=== PATIENT | male | born 1935 | race Caucasian/White ===

== ENCOUNTER 2017-01-25 02:02 | Emergency (ER) | payer MEDICARE ==
[~2017-01-25] VITALS: Ht 177.8 cm; Wt 85.0 kg
[~2017-01-25 02:02] MED LIST: AMAN100T; CARB1TAB2 PO; CARB1TAB25 PO; CEFD300C37 PO; ENTA200T22 PO; FINA5TAB4 PO; PRAM1TAB5 PO; PROP20TA PO; TAMS-11 PO; TRIH2TAB3 PO
[2017-01-25 02:05] VITALS: BP 146/86
[2017-01-25 03:05] LABS: PATH.CAST-FLAG NOT PRESENT; SPERM-FLAG NOT PRESENT; SRC-FLAG NOT PRESENT; XTAL-FLAG NOT PRESENT; YLC-FLAG NOT PRESENT
[2017-01-25] MEDS ORDERED: POLY17PO5 PO (03:20)
== END 2017-01-25 03:32 | disposition home or self-care (01) ==
LOC: ED 03:26
DX: T83.098A Other mechanical complication of other urinary catheter, initial encounter (principal); N40.1 Benign prostatic hyperplasia with lower urinary tract symptoms; R33.8 Other retention of urine; N39.0 Urinary tract infection, site not specified; Z90.49 Acquired absence of other specified parts of digestive tract
CPT/HCPCS: 81001; 87077; 87086; 87186; 99284

== ENCOUNTER 2017-01-29 06:24 | Emergency (ER) | payer MEDICARE ==
[~2017-01-29] VITALS: Ht 177.8 cm; Wt 78.0 kg
[~2017-01-29 06:24] MED LIST changes: +POLY17PO5 PO
[2017-01-29] MEDS ORDERED: SODIUM CHLORIDE 0.9% 1,000 ML IV ONE (06:25)
[2017-01-29] MEDS ORDERED: SODIUM CHLORIDE FLUSH 10ML SYR IVF ONE (06:30)
[2017-01-29 07:10] LABS: ASPARTATE AMINO TRANSFERASE 13 U/L (15-37); BLOOD UREA NITROGEN 18 mg/dL (7-18)
[2017-01-29 07:26] VITALS: BP 134/77
== END 2017-01-29 08:57 | disposition left against medical advice (07) ==
LOC: ED 06:53
DX: R33.8 Other retention of urine (principal); I48.91 Unspecified atrial fibrillation; N40.1 Benign prostatic hyperplasia with lower urinary tract symptoms; Z88.5 Allergy status to narcotic agent; Z88.1 Allergy status to other antibiotic agents
CPT/HCPCS: 36415; 80053; 81001; 83605; 85025; 85610; 85730; 87086; 93005; 99285

== ENCOUNTER 2017-02-22 03:45 | Emergency (ER) | payer MEDICARE ==
[~2017-02-22] VITALS: Ht 177.8 cm; Wt 79.7 kg
[2017-02-22 07:44] VITALS: BP 109/49
== END 2017-02-22 08:00 | disposition home or self-care (01) ==
LOC: ED 04:56
DX: R31.0 Gross hematuria (principal); N40.1 Benign prostatic hyperplasia with lower urinary tract symptoms; R33.8 Other retention of urine
CPT/HCPCS: 51702

== ENCOUNTER 2017-02-22 20:27 | Inpatient (IN) | payer MEDICARE ==
[~2017-02-22] VITALS: Ht 177.8 cm; Wt 108.1 kg
[2017-02-22 22:12] LABS: BLOOD UREA NITROGEN 29 mg/dL (7-18)
[2017-02-23] MEDS ORDERED: ONDANSETRON 2MG/ML, 2ML IVPush PRN (01:30)
[2017-02-23] MEDS ORDERED: ACETAMINOPHEN 325 MG TABLET PO PRN (01:30)
[2017-02-23] MEDS ORDERED: CARBIDOPA/LEVODOPA 25 MG/250 MG TABLET PO SCH (01:30)
[2017-02-23 02:29] VITALS: BP 142/79
[2017-02-23 02:38] VITALS: BP 142/79
[2017-02-23] MEDS: SODIUM CHLORIDE 0.9% 1,000 ML IV SCH ×3 (03:58→21:03)
[2017-02-23] MEDS: ENTACAPONE 200 MG TABLET PO SCH ×4 (05:53→19:36)
[2017-02-23] MEDS: CARBIDOPA/LEVODOPA 25 MG/100 MG TABLET PO SCH ×2 (05:54→11:57)
[2017-02-23] MEDS: CARBIDOPA/LEVODOPA 25 MG/250 MG TABLET PO SCH ×6 (05:54→21:03)
[2017-02-23] MEDS: PRAMIPEXOLE 0.5MG TABLET PO SCH ×3 (05:54→14:45)
[2017-02-23] MEDS ORDERED: ENTACAPONE 200 MG TABLET PO SCH (06:00)
[2017-02-23 07:30] VITALS: BP 128/58
[2017-02-23] MEDS ORDERED: TAMSULOSIN 0.4 MG CAP.ER.24H PO SCH (09:00)
[2017-02-23] MEDS ORDERED: CARBIDOPA/LEVODOPA 25 MG/100 MG TABLET PO SCH (09:00)
[2017-02-23] MEDS ORDERED: PRAMIPEXOLE 0.5MG TABLET PO SCH (09:00)
[2017-02-23] MEDS ORDERED: FINASTERIDE 5 MG TABLET PO SCH (09:00)
[2017-02-23] MEDS: FAMOTIDINE 20 MG/2 ML IVPush SCH ×2 (09:06→21:02)
[2017-02-23 13:59] VITALS: BP 111/70
[2017-02-23] MEDS: FINASTERIDE 5 MG TABLET PO SCH (17:52)
[2017-02-23] MEDS: TAMSULOSIN 0.4 MG CAP.ER.24H PO SCH (17:53)
[2017-02-23 20:27] VITALS: BP 145/85
[2017-02-24 01:07] VITALS: BP 131/82
[2017-02-24] MEDS ORDERED: HALOPERIDOL 5 MG/ML IM ONE (02:30)
[2017-02-24] MEDS: SODIUM CHLORIDE 0.9% 1,000 ML IV SCH ×2 (04:41→17:28)
[2017-02-24 06:39] LABS: BLOOD UREA NITROGEN 14 mg/dL (7-18)
[2017-02-24] MEDS: CARBIDOPA/LEVODOPA 25 MG/100 MG TABLET PO SCH ×2 (07:30→12:00)
[2017-02-24] MEDS: FAMOTIDINE 20 MG/2 ML IVPush SCH ×2 (09:00→19:47)
[2017-02-24] MEDS: CARBIDOPA/LEVODOPA 25 MG/250 MG TABLET PO SCH ×3 (10:00→20:00)
[2017-02-24] MEDS: ENTACAPONE 200 MG TABLET PO SCH ×3 (10:00→19:47)
[2017-02-24] MEDS: PRAMIPEXOLE 0.5MG TABLET PO SCH ×2 (10:00→14:10)
[2017-02-24] MEDS: FINASTERIDE 5 MG TABLET PO SCH (16:40)
[2017-02-24] MEDS: TAMSULOSIN 0.4 MG CAP.ER.24H PO SCH (16:40)
[2017-02-25] MEDS: SODIUM CHLORIDE 0.9% 1,000 ML IV SCH (01:28)
[2017-02-25 03:01] VITALS: BP 128/71
[2017-02-25] MEDS: PRAMIPEXOLE 0.5MG TABLET PO SCH ×3 (05:45→15:15)
[2017-02-25] MEDS: ENTACAPONE 200 MG TABLET PO SCH ×3 (05:45→15:15)
[2017-02-25] MEDS: CARBIDOPA/LEVODOPA 25 MG/250 MG TABLET PO SCH ×3 (05:45→15:15)
[2017-02-25 07:08] VITALS: BP 135/75
[2017-02-25] MEDS: CARBIDOPA/LEVODOPA 25 MG/100 MG TABLET PO SCH ×2 (07:30→12:00)
[2017-02-25] MEDS: FAMOTIDINE 20 MG/2 ML IVPush SCH (09:00)
[2017-02-25 13:46] VITALS: BP 114/51
[2017-02-25] MEDS: TAMSULOSIN 0.4 MG CAP.ER.24H PO SCH (18:28)
[2017-02-25] MEDS: FINASTERIDE 5 MG TABLET PO SCH (18:29)
[2017-03-19] MEDS ORDERED: TAMS0.4C2 PO (13:39)
[2017-03-19] MEDS ORDERED: FINA5TAB4 PO (13:39)
== END 2017-02-25 19:46 | disposition home health service (06) | DRG 725 ==
LOC: ED 20:48 → EDIP 02-23 00:33 → 4NOR 02-23 01:52
PROVIDERS: ADMIT Internal Medicine; ATTEND Internal Medicine
DX: N40.1 Benign prostatic hyperplasia with lower urinary tract symptoms (principal); G92 Toxic encephalopathy; R31.0 Gross hematuria; E86.0 Dehydration; R33.8 Other retention of urine; I48.91 Unspecified atrial fibrillation; G20 Parkinson's disease; Z90.89 Acquired absence of other organs; Z82.3 Family history of stroke; Z82.49 Family history of ischemic heart disease and other diseases of the circulatory system; Z80.9 Family history of malignant neoplasm, unspecified; Z88.8 Allergy status to other drugs, medicaments and biological substances; Z90.49 Acquired absence of other specified parts of digestive tract
CPT/HCPCS: 36415; 70450; 80048; 81001; 82040; 85014; 85018; 85025; 87077; 87086; 87186; J7030; S0028

== ENCOUNTER → 2017-03-12 | Outpatient (CLI) | payer MEDICARE ==
[~2017-03-12] MED LIST changes: +OMNIPAQUE 350 MG/ML, 150 ML BOTTLE ONE
== END | disposition home or self-care (01) ==
LOC: CFH 09:50
PROVIDERS: ATTEND Physician Assistant
DX: N32.9 Bladder disorder, unspecified (principal); N40.0 Benign prostatic hyperplasia without lower urinary tract symptoms; M47.896 Other spondylosis, lumbar region; K76.89 Other specified diseases of liver
CPT/HCPCS: 74178; Q9967

== ENCOUNTER 2017-03-26 10:42 | Inpatient (IN) | payer MEDICARE ==
[~2017-03-26] VITALS: Ht 177.8 cm; Wt 78.9 kg
[~2017-03-26 10:42] MED LIST changes: -OMNIPAQUE 350 MG/ML, 150 ML BOTTLE ONE; +TAMS0.4C2 PO
[2017-03-26] MEDS ORDERED: LACTATED RINGERS 1,000 ML IV SCH (11:30)
[2017-03-26] MEDS ORDERED: NA P133E2 PR (11:33)
[2017-03-26] MEDS ORDERED: PROPOFOL 10 MG/ML, 20ML ONE (14:13)
[2017-03-26] MEDS ORDERED: PROPOFOL 10 MG/ML, 50ML ONE (14:13)
[2017-03-26] MEDS ORDERED: MIDAZOLAM 1 MG/ML, 2ML ONE (14:14)
[2017-03-26] MEDS ORDERED: FENTANYL PF 100 MCG/2ML ONE (14:22)
[2017-03-26] MEDS ORDERED: CEFTRIAXONE 1,000 MG ONE ×2 (14:29→15:10)
[2017-03-26] MEDS: CEFTRIAXONE PMX 1GM/50ML 50 ML IV SCH (14:55)
[2017-03-26] MEDS ORDERED: MIDAZOLAM 1 MG/ML, 2ML IV PRN (15:00)
[2017-03-26] MEDS ORDERED: FENTANYL PF 100 MCG/2ML IV PRN (15:00)
[2017-03-26] MEDS ORDERED: HYDROmorphone 1 MG/ML, 1ML IV PRN (15:00)
[2017-03-26] MEDS ORDERED: FUROSEMIDE 20 MG/2 ML ONE (15:12)
[2017-03-26] MEDS ORDERED: TEMAZEPAM 15 MG CAPSULE PO PRN (16:00)
[2017-03-26] MEDS ORDERED: ONDANSETRON 2MG/ML, 2ML IV PRN (16:00)
[2017-03-26] MEDS ORDERED: HYDROcodone/APAP 5/325 TABLET PO PRN (16:00)
[2017-03-26] MEDS ORDERED: OPIUM/BELLADONNA SUPP.RECT 16.2-30 MG PR PRN (16:00)
[2017-03-26] MEDS ORDERED: MORPHINE SULFATE 4 MG/ML, 1ML IV PRN (16:00)
[2017-03-26 17:11] LABS: BLOOD UREA NITROGEN 23 mg/dL (7-18)
[2017-03-26 17:55] VITALS: BP 131/72
[2017-03-26] MEDS: D5%-LACTATED RINGERS 1,000 ML IV SCH (18:15)
[2017-03-26 20:00] VITALS: BP 135/67
[2017-03-26] MEDS: ENTACAPONE 200 MG TABLET PO SCH (21:43)
[2017-03-26] MEDS: CARBIDOPA/LEVODOPA 25 MG/250 MG TABLET PO SCH (21:44)
[2017-03-26 23:56] VITALS: BP 100/53
[2017-03-27 02:00] VITALS: BP 133/62
[2017-03-27] MEDS: ENTACAPONE 200 MG TABLET PO SCH ×4 (05:59→20:02)
[2017-03-27] MEDS: CARBIDOPA/LEVODOPA 25 MG/250 MG TABLET PO SCH ×4 (05:59→20:02)
[2017-03-27] MEDS: PRAMIPEXOLE 0.5MG TABLET PO SCH ×4 (05:59→20:10)
[2017-03-27] MEDS ORDERED: ENTACAPONE 200 MG TABLET PO SCH (06:00)
[2017-03-27 06:28] LABS: ASPARTATE AMINO TRANSFERASE 14 U/L (15-37); BLOOD UREA NITROGEN 24 mg/dL (7-18)
[2017-03-27 06:33] LABS: IS PT STATUS REG ER OR PRE ER? NO
[2017-03-27 07:22] VITALS: BP 108/52
[2017-03-27] MEDS: D5%-LACTATED RINGERS 1,000 ML IV SCH (07:35)
[2017-03-27] MEDS: POLYETHYLENE GLYCOL 17 GM PACKET PO SCH (09:00)
[2017-03-27] MEDS: FINASTERIDE 5 MG TABLET PO SCH ×2 (09:00→20:02)
[2017-03-27] MEDS ORDERED: PRAMIPEXOLE 0.5MG TABLET PO SCH (09:00)
[2017-03-27] MEDS: CARBIDOPA/LEVODOPA 25 MG/100 MG TABLET PO SCH (09:35)
[2017-03-27 11:40] LABS: IS PT STATUS REG ER OR PRE ER? NO
[2017-03-27 14:37] VITALS: BP 122/63
[2017-03-27] MEDS: CEFTRIAXONE PMX 1GM/50ML 50 ML IV SCH (16:06)
[2017-03-27 16:32] LABS: IS PT STATUS REG ER OR PRE ER? NO
[2017-03-27 20:00] VITALS: BP 134/64
[2017-03-27] MEDS ORDERED: TAMSULOSIN 0.4 MG CAP.ER.24H PO SCH (21:00)
[2017-03-28 02:00] VITALS: BP 163/77
[2017-03-28] MEDS: ENTACAPONE 200 MG TABLET PO SCH ×2 (05:47→10:15)
[2017-03-28] MEDS: CARBIDOPA/LEVODOPA 25 MG/250 MG TABLET PO SCH (05:47)
[2017-03-28] MEDS: PRAMIPEXOLE 0.5MG TABLET PO SCH ×2 (05:52→10:16)
[2017-03-28 07:48] VITALS: BP 114/61
[2017-03-28] MEDS: POLYETHYLENE GLYCOL 17 GM PACKET PO SCH (09:00)
[2017-03-28] MEDS: CARBIDOPA/LEVODOPA 25 MG/100 MG TABLET PO SCH (10:13)
[2017-03-28] MEDS: FINASTERIDE 5 MG TABLET PO SCH (10:14)
[2017-03-28] MEDS ORDERED: CEPH-368 PO (12:00)
== END 2017-03-28 12:17 | disposition home or self-care (01) | DRG 713 ==
LOC: OR 10:42 → ORIP 15:59 → 4NOR 17:57 → 4EST 03-27 01:42 → OBSVTOIN 03-27 15:18 → DCLOUNGE 03-28 11:49
PROVIDERS: ADMIT Urology; ATTEND Internal Medicine
PROC: 0TFB8ZZ Fragmentation in Bladder, Via Natural or Artificial Opening Endoscopic (ICD-10-PCS; 2017-03-26)
PROC: 0VT08ZZ Resection of Prostate, Via Natural or Artificial Opening Endoscopic (ICD-10-PCS; principal; 2017-03-26 13:00)
DX: N40.1 Benign prostatic hyperplasia with lower urinary tract symptoms (principal); E87.1 Hypo-osmolality and hyponatremia; R33.9 Retention of urine, unspecified; G20 Parkinson's disease; I10 Essential (primary) hypertension; E11.9 Type 2 diabetes mellitus without complications; R33.8 Other retention of urine; M19.90 Unspecified osteoarthritis, unspecified site; Z90.49 Acquired absence of other specified parts of digestive tract; Z79.899 Other long term (current) drug therapy; Z80.0 Family history of malignant neoplasm of digestive organs; Z80.9 Family history of malignant neoplasm, unspecified; D63.8 Anemia in other chronic diseases classified elsewhere; N21.0 Calculus in bladder; R00.8 Other abnormalities of heart beat; I49.9 Cardiac arrhythmia, unspecified
CPT/HCPCS: 36415; 71010; 80048; 80053; 82040; 83735; 84100; 84443; 84484; 85018; 85025; 88305; 93005; 93306; G0378; J0696; J2250; J2704; J3010; J1940; J7120; J7121

== ENCOUNTER → 2017-05-20 | Outpatient (CLI) | payer MEDICARE ==
[~2017-05-20] MED LIST changes: +CEPH-368 PO; +GADOBUTROL 10 MMOL/10 ML VIAL ONE; +NA P133E2 PR
== END | disposition home or self-care (01) ==
LOC: CFH 10:24
PROVIDERS: ATTEND Urology
DX: R31.0 Gross hematuria (principal); R39.12 Poor urinary stream; R97.20 Elevated prostate specific antigen [PSA]; N39.9 Disorder of urinary system, unspecified
CPT/HCPCS: 72197; A9585

== ENCOUNTER 2018-02-27 19:41 | Emergency (ER) | payer MEDICARE ==
[~2018-02-27] VITALS: Ht 177.8 cm; Wt 81.3 kg
[~2018-02-27 19:41] MED LIST changes: -GADOBUTROL 10 MMOL/10 ML VIAL ONE
[2018-02-27 19:44] VITALS: BP 140/65
== END 2018-02-27 22:17 | disposition home or self-care (01) ==
LOC: ED 22:11
DX: S52.572A Other intraarticular fracture of lower end of left radius, initial encounter for closed fracture (principal); G20 Parkinson's disease; I48.91 Unspecified atrial fibrillation; Z90.49 Acquired absence of other specified parts of digestive tract; W01.0XXA Fall on same level from slipping, tripping and stumbling without subsequent striking against object, initial encounter; Y93.89 Activity, other specified; Y92.009 Unspecified place in unspecified non-institutional (private) residence as the place of occurrence of the external cause; Y99.8 Other external cause status
CPT/HCPCS: 29125; 99284

== ENCOUNTER 2018-03-15 17:07 | Emergency (ER) | payer MEDICARE ==
[~2018-03-15] VITALS: Ht 177.8 cm; Wt 81.9 kg
[2018-03-15 18:29] LABS: BASOPHILS # (AUTO) 0.01 x10^3/uL (0-0.1); BASOPHILS % (AUTO) 0 % (0-1); EOSINOPHILS # (AUTO) 0.12 x10^3/uL (0-0.4); EOSINOPHILS % (AUTO) 2 % (1-7); LYMPHOCYTES # (AUTO) 1.64 x10^3/uL (1-3.4); LYMPHOCYTES % (AUTO) 23 % (22-44); MD NO; MEAN CORPUSCULAR HEMOGLOBIN 31.6 pg (27.5-34.5); MEAN CORPUSCULAR HGB CONC 34.2 g/dL (33.2-36.2); MEAN CORPUSCULAR VOLUME 92.6 fL (81-97); MEAN PLATELET VOLUME 8.1 fL (7.4-10.4); MONOCYTES # (AUTO) 0.51 x10^3/uL (0.2-0.8); MONOCYTES % (AUTO) 7 % (2-9); NEUTROPHILS # (AUTO) 4.74 x10^3/uL (1.8-6.8); NEUTROPHILS % (AUTO) 68 % (42-75); PLATELET COUNT 213 x10^3/uL (130-400); RED BLOOD COUNT 4.03 x10^6/uL (4.38-5.82); RED CELL DISTRIBUTION WIDTH 15.3 % (9.4-14.8)
[2018-03-15] MEDS ORDERED: SODIUM CHLORIDE FLUSH 10ML SYR IVF ONE (18:30)
[2018-03-15 18:36] LABS: ALANINE AMINOTRANSFERASE 12 U/L (12-78); ALBUMIN 3.1 g/dL (3.4-5.0); ANION GAP 5 mmol/L (5-15); CALCIUM 8.3 mg/dL (8.5-10.1); CHLORIDE 109 mmol/L (98-107); CREATININE 0.95 mg/dL (0.7-1.3)
[2018-03-15 18:38] LABS: ALKALINE PHOSPHATASE 93 U/L (45-117); BILIRUBIN,TOTAL 0.5 mg/dL (0.2-1.0); TOTAL PROTEIN 6.1 g/dL (6.4-8.2)
[2018-03-15 19:40] VITALS: BP 172/89
[2018-03-15 19:47] LABS: MICROSCOPIC NOT IND
[2018-03-15 19:54] LABS: CULTURE INDICATED? NO
== END 2018-03-15 20:49 | disposition home or self-care (01) ==
LOC: ED 19:50
DX: M25.551 Pain in right hip (principal); M79.651 Pain in right thigh; G20 Parkinson's disease; I48.91 Unspecified atrial fibrillation
CPT/HCPCS: 36415; 72110; 80053; 81003; 85025; 93005; 99285

== ENCOUNTER 2018-09-01 14:01 | Emergency (ER) | payer MEDICARE ==
[~2018-09-01] VITALS: Ht 172.7 cm; Wt 80.3 kg
[2018-09-01 16:43] VITALS: BP 145/68
== END 2018-09-01 16:47 | disposition home or self-care (01) ==
LOC: ED 16:10
DX: M13.161 Monoarthritis, not elsewhere classified, right knee (principal); M25.461 Effusion, right knee; I48.91 Unspecified atrial fibrillation; Z90.49 Acquired absence of other specified parts of digestive tract; X50.1XXA Overexertion from prolonged static or awkward postures, initial encounter; Y93.89 Activity, other specified; Y92.009 Unspecified place in unspecified non-institutional (private) residence as the place of occurrence of the external cause; Y99.8 Other external cause status
CPT/HCPCS: 99284

== ENCOUNTER 2018-09-24 19:59 | Emergency (ER) | payer MEDICARE ==
[~2018-09-24] VITALS: Ht 177.8 cm; Wt 79.5 kg
--- NOTE | 2018-09-24 20:15 | NUR ---
XR at bedside.
--- NOTE | 2018-09-24 20:18 | NUR ---
Dr. Lucero at bedside to evaluate pt.
--- NOTE | 2018-09-24 21:06 | NUR ---
XR at bedside.
--- NOTE | 2018-09-24 21:41 | NUR ---
EDT at bedside for splint.
[2018-09-24 21:46] VITALS: BP 156/81
== END 2018-09-24 22:14 | disposition home or self-care (01) ==
LOC: ED 21:39
DX: I48.91 Unspecified atrial fibrillation (principal); Z90.49 Acquired absence of other specified parts of digestive tract; Z88.5 Allergy status to narcotic agent; Z88.8 Allergy status to other drugs, medicaments and biological substances; S52.021A Displaced fracture of olecranon process without intraarticular extension of right ulna, initial encounter for closed fracture; W01.0XXA Fall on same level from slipping, tripping and stumbling without subsequent striking against object, initial encounter; Y93.89 Activity, other specified; Y92.009 Unspecified place in unspecified non-institutional (private) residence as the place of occurrence of the external cause; Y99.8 Other external cause status
CPT/HCPCS: 29105; 99283

== ENCOUNTER 2019-03-20 15:36 | Observation (INO) | payer MEDICARE ==
[~2019-03-20] VITALS: Ht 177.8 cm; Wt 73.6 kg
[2019-03-20] MEDS ORDERED: CEFTRIAXONE 1,000 MG in SODIUM CHLORIDE 0.9% 50 ML IVPB ONE (16:30)
[2019-03-20] MEDS ORDERED: SODIUM CHLORIDE FLUSH 10ML SYR IVF ONE (16:30)
[2019-03-20] MEDS ORDERED: VIT1CAPS11 PO (16:54)
[2019-03-20] MEDS ORDERED: SEROQUEL PO (16:54)
[2019-03-20] MEDS ORDERED: UBID100C24 PO (16:54)
[2019-03-20 16:55] LABS: BASOPHILS # (AUTO) 0.01 x10^3/uL (0-0.1); BASOPHILS % (AUTO) 0 % (0-1); EOSINOPHILS # (AUTO) 0.13 x10^3/uL (0-0.4); EOSINOPHILS % (AUTO) 3 % (1-7); LYMPHOCYTES # (AUTO) 1.31 x10^3/uL (1-3.4); LYMPHOCYTES % (AUTO) 24 % (22-44); MD NO; MEAN CORPUSCULAR HEMOGLOBIN 32.1 pg (27.5-34.5); MEAN CORPUSCULAR HGB CONC 33.5 g/dL (33.2-36.2); MEAN CORPUSCULAR VOLUME 95.8 fL (81-97); MEAN PLATELET VOLUME 8.2 fL (7.4-10.4); MONOCYTES % (AUTO) 7 % (2-9); NEUTROPHILS # (AUTO) 3.52 x10^3/uL (1.8-6.8); NEUTROPHILS % (AUTO) 66 % (42-75); PLATELET COUNT 197 x10^3/uL (130-400); RED BLOOD COUNT 3.65 x10^6/uL (4.38-5.82); RED CELL DISTRIBUTION WIDTH 14.8 % (9.4-14.8)
--- NOTE | 2019-03-20 16:56 | NUR ---
LAB - US DELAY
[2019-03-20 17:06] LABS: INTERNATIONAL NORMALIZED RATIO 1.08 (0.93-1.1); PROTHROMBIN TIME 11.3 Seconds (9.6-11.5)
[2019-03-20 17:07] LABS: ALBUMIN 2.9 g/dL (3.4-5.0); ANION GAP 4 mmol/L (5-15); CALCIUM 8.3 mg/dL (8.5-10.1); CHLORIDE 108 mmol/L (98-107); CREATININE 0.79 mg/dL (0.7-1.3)
--- NOTE | 2019-03-20 17:42 | NUR ---
Pinky - xray - delay in performing tib fib exam due lab and ultrasound
[2019-03-20] MEDS ORDERED: CEFTRIAXONE PMX 1GM/50ML 50 ML ONE (17:43)
--- NOTE | 2019-03-20 18:56 | NUR ---
report received from benji rivers.
[2019-03-20] MEDS ORDERED: POLYETHYLENE GLYCOL 17 GM PACKET PO PRN (19:00)
[2019-03-20] MEDS ORDERED: ACETAMINOPHEN 325 MG TABLET PO PRN (19:00)
[2019-03-20] MEDS ORDERED: KETOROLAC 30 MG/1 ML IVPush PRN (19:00)
[2019-03-20] MEDS ORDERED: SODIUM CHLORIDE FLUSH 10ML SYR IVF PRN (19:00)
[2019-03-20] MEDS ORDERED: ONDANSETRON ODT 4 MG PO PRN (19:00)
[2019-03-20] MEDS ORDERED: BISACODYL 10 MG SUPP PR PRN (19:00)
[2019-03-20] MEDS ORDERED: HEPARIN 5,000 UNITS/ML, 1ML ONE (19:08)
[2019-03-20] MEDS: HEPARIN 5,000 UNITS/ML, 1ML SQ SCH (19:12)
--- NOTE | 2019-03-20 19:17 | NUR ---
abx ordered from pharmacy now.
[2019-03-20 19:25] LABS: MICROSCOPIC NOT IND
--- NOTE | 2019-03-20 19:25 | NUR ---
report given to charmaine rivers. all questions answered.
[2019-03-20 19:32] LABS: CULTURE INDICATED? NO
[2019-03-20 19:59] VITALS: BP 146/74
[2019-03-20] MEDS ORDERED: PRAMIPEXOLE 0.5MG TABLET PO SCH (21:00)
[2019-03-20] MEDS ORDERED: CARBIDOPA/LEVODOPA 25 MG/250 MG TABLET PO SCH (21:00)
[2019-03-20] MEDS ORDERED: TEMPLATE NON-FORMULARY MED. (Vit A/Vit C/Vit E/Zinc/Copper** (Preservision Areds Softgel PO SCH (21:00)
[2019-03-20] MEDS: QUETIAPINE 25MG TABLET PO SCH (21:04)
[2019-03-20] MEDS: AMPICILLIN/SULBACTAM 3 GM in SODIUM CHLORIDE 0.9% 100 ML IV SCH (21:09)
[2019-03-20] MEDS: SODIUM CHLORIDE FLUSH 10ML SYR IVF SCH (21:10)
[2019-03-21 00:18] VITALS: BP 158/82
[2019-03-21] MEDS: AMPICILLIN/SULBACTAM 3 GM in SODIUM CHLORIDE 0.9% 100 ML IV SCH ×4 (03:09→20:24)
[2019-03-21] MEDS: CARBIDOPA/LEVODOPA 25 MG/250 MG TABLET PO SCH ×4 (05:56→18:23)
[2019-03-21] MEDS: PRAMIPEXOLE 0.5MG TABLET PO SCH ×3 (05:56→14:51)
[2019-03-21] MEDS: HEPARIN 5,000 UNITS/ML, 1ML SQ SCH ×3 (05:56→20:32)
[2019-03-21 08:16] VITALS: BP 149/73
[2019-03-21] MEDS: SODIUM CHLORIDE FLUSH 10ML SYR IVF SCH ×2 (08:55→20:26)
[2019-03-21] MEDS ORDERED: TEMPLATE NON-FORMULARY MED. (Ubidecarenone (Coq-10) 300 MG) PO SCH (09:00)
[2019-03-21 09:18] LABS: BASOPHILS # (AUTO) 0.01 x10^3/uL (0-0.1); BASOPHILS % (AUTO) 0 % (0-1); EOSINOPHILS # (AUTO) 0.09 x10^3/uL (0-0.4); EOSINOPHILS % (AUTO) 2 % (1-7); LYMPHOCYTES # (AUTO) 1.48 x10^3/uL (1-3.4); LYMPHOCYTES % (AUTO) 27 % (22-44); MD NO; MEAN CORPUSCULAR HEMOGLOBIN 30.9 pg (27.5-34.5); MEAN CORPUSCULAR HGB CONC 32.9 g/dL (33.2-36.2); MEAN CORPUSCULAR VOLUME 94.1 fL (81-97); MEAN PLATELET VOLUME 7.7 fL (7.4-10.4); MONOCYTES # (AUTO) 0.31 x10^3/uL (0.2-0.8); MONOCYTES % (AUTO) 6 % (2-9); NEUTROPHILS # (AUTO) 3.62 x10^3/uL (1.8-6.8); NEUTROPHILS % (AUTO) 66 % (42-75); PLATELET COUNT 208 x10^3/uL (130-400); RED BLOOD COUNT 4.21 x10^6/uL (4.38-5.82); RED CELL DISTRIBUTION WIDTH 14.9 % (9.4-14.8)
[2019-03-21 09:28] LABS: ALANINE AMINOTRANSFERASE 18 U/L (12-78); ANION GAP 6 mmol/L (5-15); CALCIUM 8.2 mg/dL (8.5-10.1); CHLORIDE 109 mmol/L (98-107); CREATININE 0.81 mg/dL (0.7-1.3)
[2019-03-21 09:29] LABS: ALKALINE PHOSPHATASE 83 U/L (45-117); BILIRUBIN,TOTAL 0.5 mg/dL (0.2-1.0); TOTAL PROTEIN 6.1 g/dL (6.4-8.2)
[2019-03-21] MEDS: SENNA/DOCUSATE TABLET PO SCH (10:17)
[2019-03-21] MEDS: QUETIAPINE 25MG TABLET PO SCH ×2 (10:18→20:25)
[2019-03-21 15:54] VITALS: BP 148/73
[2019-03-21 19:40] VITALS: BP 139/66
[2019-03-22 01:14] VITALS: BP 172/64
[2019-03-22] MEDS: AMPICILLIN/SULBACTAM 3 GM in SODIUM CHLORIDE 0.9% 100 ML IV SCH ×2 (03:05→09:00)
[2019-03-22] MEDS: HEPARIN 5,000 UNITS/ML, 1ML SQ SCH (06:00)
[2019-03-22] MEDS: CARBIDOPA/LEVODOPA 25 MG/250 MG TABLET PO SCH ×2 (06:11→10:12)
[2019-03-22] MEDS: PRAMIPEXOLE 0.5MG TABLET PO SCH ×2 (06:11→10:11)
[2019-03-22 07:00] VITALS: BP 155/82
[2019-03-22] MEDS ORDERED: LACT1CAP40 PO (07:46)
[2019-03-22] MEDS ORDERED: AMOX1TAB64 PO (07:46)
[2019-03-22] MEDS: SODIUM CHLORIDE FLUSH 10ML SYR IVF SCH (09:00)
[2019-03-22] MEDS: SENNA/DOCUSATE TABLET PO SCH (09:00)
[2019-03-22] MEDS: QUETIAPINE 25MG TABLET PO SCH (10:12)
== END 2019-03-22 12:24 | disposition home or self-care (01) ==
LOC: ED 19:00 → INTOOBSV 19:48 → EDIP 19:48 → 3NE 19:49
PROVIDERS: ADMIT Internal Medicine; ATTEND Internal Medicine
DX: L03.115 Cellulitis of right lower limb (principal); E74.39 Other disorders of intestinal carbohydrate absorption; N40.0 Benign prostatic hyperplasia without lower urinary tract symptoms; R54 Age-related physical debility; G20 Parkinson's disease; M25.461 Effusion, right knee; D64.9 Anemia, unspecified; I48.91 Unspecified atrial fibrillation; R73.02 Impaired glucose tolerance (oral); R29.6 Repeated falls; Z85.828 Personal history of other malignant neoplasm of skin; Z88.5 Allergy status to narcotic agent; Z88.8 Allergy status to other drugs, medicaments and biological substances; Z79.899 Other long term (current) drug therapy; W18.30XA Fall on same level, unspecified, initial encounter
CPT/HCPCS: 36415; 73590; 80048; 80053; 81003; 82040; 85025; 85610; 85730; 87040; 93971; 96365; 96366; 96367; 96372; 99284; G0378; J0295; J0696; J1644